=== PATIENT | female | born 1955 | race Two or more races ===

== ENCOUNTER 2020-03-10 11:52 | Outpatient (CLI) | payer OTHER | END 2020-03-10 13:00 | disposition home or self-care (01) | LOC: OFIC 805 11:52 | PROVIDERS: ATTEND Otolaryngology | DX: H60.8X2 Other otitis externa, left ear (principal); H61.22 Impacted cerumen, left ear ==

== ENCOUNTER → 2020-04-12 | Outpatient (CLI) | payer OTHER | END | disposition home or self-care (01) | LOC: OFIC 805 11:00 | PROVIDERS: ATTEND Otolaryngology | DX: H60.8X2 Other otitis externa, left ear (principal); H61.22 Impacted cerumen, left ear ==

== ENCOUNTER → 2020-06-06 | Outpatient (CLI) | payer OTHER ==
[~2020-06-06] MED LIST: ATORVASTATIN CA20 MG; CIPROFLOX-DEXA7.5 ML; COZAAR50 MG PO; DICLOFENAC POTA50 MG; DUI500 PO; ELIQUIS2.5 MG PO; HUMULIN 70100 UNIT/2; HUMULIN N100 UNIT/2; PERCOCET 5-3251 EACH PO; SYNTHROID150 MCG PO; SYNTHROID175 MCG; [UNRECOGNIZED DRUG - OTHER]
== END | disposition home or self-care (01) ==
LOC: PPH VACUNA
PROVIDERS: ATTEND Emergency Medicine Pediatric Emergency Medicine
DX: Z23 Encounter for immunization (principal)

== ENCOUNTER 2020-06-14 07:30 | Inpatient (IN) | payer OTHER ==
[~2020-06-14] VITALS: Ht 165.1 cm; Wt 83.5 kg
[2020-06-14] MEDS ORDERED: COZAAR50 MG PO (09:20)
[2020-06-14] MEDS ORDERED: SYNTHROID150 MCG PO (11:33)
[2020-06-14] MEDS ORDERED: HUMULIN 70100 UNIT/2 (11:34)
[2020-06-21] MEDS ORDERED: [UNRECOGNIZED DRUG - OTHER] (10:22)
[2020-06-21] MEDS ORDERED: ATORVASTATIN CA20 MG (10:22)
[2020-06-21] MEDS ORDERED: HUMULIN N100 UNIT/2 (10:22)
[2020-06-21] MEDS ORDERED: SYNTHROID175 MCG (10:23)
[2020-06-21] MEDS ORDERED: DICLOFENAC POTA50 MG (10:23)
[2020-06-21] MEDS ORDERED: CIPROFLOX-DEXA7.5 ML (10:23)
[2020-06-23] MEDS ORDERED: ELIQUIS2.5 MG PO (15:25)
[2020-06-23] MEDS ORDERED: PERCOCET 5-3251 EACH PO (15:25)
[2020-06-23] MEDS ORDERED: DUI500 PO (15:25)
== END 2020-06-23 17:26 | DRG 470 ==
LOC: O/R 06-21 05:50 → SURH 06-21 05:50
PROVIDERS: ADMIT Orthopaedic Surgery; ATTEND Orthopaedic Surgery
PROC: 0SRC0JZ Replacement of Right Knee Joint with Synthetic Substitute, Open Approach (ICD-10-PCS; principal; 2020-06-21 19:00)
DX: M17.11 Unilateral primary osteoarthritis, right knee (principal); D62 Acute posthemorrhagic anemia; E11.9 Type 2 diabetes mellitus without complications; I10 Essential (primary) hypertension; E03.9 Hypothyroidism, unspecified; E66.8 Other obesity; Z79.4 Long term (current) use of insulin

== ENCOUNTER 2021-01-24 08:00 | Outpatient (CLI) | payer OTHER | END 2021-01-24 08:30 | disposition home or self-care (01) | LOC: PPH VACUNA 08:00 | PROVIDERS: ATTEND Emergency Medicine Pediatric Emergency Medicine | DX: Z23 Encounter for immunization (principal) ==

== ENCOUNTER 2021-05-08 09:40 | Outpatient (CLI) | payer OTHER | END 2021-05-08 09:50 | disposition home or self-care (01) | LOC: LAB 09:40 | PROVIDERS: ATTEND Internal Medicine | DX: E11.9 Type 2 diabetes mellitus without complications (principal) ==